=== PATIENT | female | born 1945 | race Caucasian/White ===

== ENCOUNTER 2025-06-16 21:25 | Emergency (ER) | payer MEDICARE ==
[~2025-06-16] VITALS: Ht 162.6 cm; Wt 86.6 kg
[2025-06-16 21:25] VITALS: TEMP 98.2
[2025-06-16 22:10] VITALS: O2SAT 99
[2025-06-16 22:15] VITALS: BP 136/62
== END 2025-06-16 22:44 | disposition home or self-care (01) ==
LOC: M ED 21:25
DX: J44.9 Chronic obstructive pulmonary disease, unspecified (principal); E78.5 Hyperlipidemia, unspecified; T83.028A Displacement of other urinary catheter, initial encounter; Z86.79 Personal history of other diseases of the circulatory system; Z88.0 Allergy status to penicillin; Y92.89 Other specified places as the place of occurrence of the external cause; Y93.89 Activity, other specified; Y99.8 Other external cause status